=== PATIENT | male | born 1980 | race Two or more races ===

== ENCOUNTER 2019-02-27 09:59 | Inpatient (IN) | payer MEDICAID ==
[~2019-02-27] VITALS: Ht 165.1 cm; Wt 68.5 kg
[2019-02-27] MEDS ORDERED: MULTIVITAMINS1 EAC2 ORAL (10:09)
[2019-02-27] MEDS ORDERED: CREON DR 24,001 EACH PO (10:09)
[2019-02-27] MEDS ORDERED: OMEPRAZOLE20 M2 ORAL (10:09)
[2019-02-27] MEDS ORDERED: ACETAMINOPHEN325 M1 ORAL (10:09)
[2019-02-27] MEDS ORDERED: SENNA8.6 M2 PO (10:12)
[2019-02-27] MEDS ORDERED: VITAMIN B-12500 MC3 SL (10:12)
[2019-02-27] MEDS ORDERED: ZOFRAN4 M1 ORAL (10:12)
[2019-02-27 10:20] VITALS: BP 118/71
--- NOTE | 2019-02-27 10:20 | NUR ---
ED Nurse Note: brought in to ER from SNF by ambulance for abdominal pain 04/30. aao x4 and ambulatory but weak at this moment. skin clean and intact. calm and cooperative but gramicing for pain. pt reported that he vomited x1 this morning at the SNF not EMS did not witness and not since he arrived. pt still c/o nausea.
--- NOTE | 2019-02-27 10:20 | Emergency Room Report ---
History of Present Illness General Chief Complaint: Abdominal Pain Source: Patient, EMS Present Illness HPI Presents via EMS for abdominal pain and vomiting this been present for 3 days. He denies drinking alcohol. He states he is never had this pain before. He is unable to keep down any fluids. He denies hematemesis coffee grounds or melena. It is severe and constant mid abdomen radiating towards his back. He rates the pain 10/10. He did drink alcohol but has been sober for 5 months. In the past he had mild pains in his stomach related to drinking but nothing this severe. He is never been evaluated for this pain. No fevers, chills, sore throat, chest pain, palpitations, dysuria, shortness of breath, joint pain, rashes, depression, anxiety, visual changes, headache. Allergies: Coded Allergies: PENICILLINS (Verified Allergy, Unknown, 02/27/19) Patient History Past Medical History: see triage record Social History: Reports: smoking, alcohol use - None for 5 months but prior use ; Denies: drug use Social History Narrative In a fpc - born in [facility] Reviewed Nursing Documentation: PMH: Agreed; PSxH: Agreed Nursing Documentation-PMH Hx Cancer: Yes - PANCREAS Hx Gastrointestinal Problems: Yes - GI BLEED, CHRONIC ABD PAIN Review of Systems All Other Systems: negative except mentioned in HPI Physical Exam Vital Signs Date Time Temp Pulse Resp B/P (MAP) Pulse Ox O2 Delivery O2 Flow Rate FiO2 02/27/19 09:58 98.8 78 19 118/71 (87) 100 Room Air Sp02 EP Interpretation: reviewed, normal General Appearance: no apparent distress, GCS 15, mild distress Head: normocephalic, atraumatic Eyes: bilateral eye normal inspection, bilateral eye PERRL ENT: moist mucus membranes Neck: supple Respiratory: lungs clear, normal breath sounds Cardiovascular #1: regular rate, rhythm Cardiovascular #2: 2+ radial (R) Gastrointestinal: normal inspection, no mass, non-distended, no rebound, guarding - Minimal, tenderness, decreased bowel sounds Genitourinary: no CVA tenderness Musculoskeletal: back normal, normal range of motion Neurologic: alert, oriented x3, grossly normal Psychiatric: anxious - In pain Skin: no rash Medical Decision Making Diagnostic Impression: Primary Impression: Acute pancreatitis Qualified Codes: K85.20 - Alcohol induced acute pancreatitis without necrosis or infection ER Course Patient presents with epigastric pain and persistent vomiting for 3 days. Differential includes gastritis, gastroenteritis, pancreatitis, gallbladder disease, electrolyte imbalance amongst others. The patient will be evaluated with EKG, chest x-ray CT the abdomen pelvis and labs. Initially patient will be treated with Pepcid, Reglan and Benadryl. EKG without injury. Chest x-ray clear. Labs with elevated white count, normal calcium elevated lipase. Glucose minimally elevated. Patient is more calm after Reglan and Benadryl however states that the pain is still significant and severe. IV hydration continuing. Morphine administered. CT abdomen pancreatitis. Patient still nauseated although not actively vomiting. Also still complains about abdominal pain. He alleges that he has not been drinking alcohol recently. Based on CT results consideration of alcohol related pancreatitis initially that has recurred at this time. Suggestion of either necrosis or pseudocyst. Admit medical floor Dr. Franklin. Laboratory Tests Test 02/27/19 10:24 02/27/19 11:00 White Blood Count 11.6 K/UL (4.8-10.8) H Red Blood Count 5.31 M/UL (4.70-6.10) Hemoglobin 10.3 G/DL (14.2-18.0) L Hematocrit 34.8 % (42.0-52.0) L Mean Corpuscular Volume 66 FL (80-99) L Mean Corpuscular Hemoglobin 19.4 PG (27.0-31.0) L Mean Corpuscular Hemoglobin Concent 29.7 G/DL (32.0-36.0) L Red Cell Distribution Width 17.4 % (11.6-14.8) H Platelet Count 449 K/UL (150-450) Mean Platelet Volume 5.0 FL (6.5-10.1) L Neutrophils (%) (Auto) 81.3 % (45.0-75.0) H Lymphocytes (%) (Auto) 9.5 % (20.0-45.0) L Monocytes (%) (Auto) 7.8 % (1.0-10.0) Eosinophils (%) (Auto) 0.8 % (0.0-3.0) Basophils (%) (Auto) 0.6 % (0.0-2.0) Prothrombin Time 10.2 SEC (9.30-11.50) Prothrombin Time INR 1.0 (0.9-1.1) PTT 26 SEC (23-33) Sodium Level 135 MMOL/L (136-145) L Potassium Level 3.9 MMOL/L (3.5-5.1) Chloride Level 101 MMOL/L (98-107) Carbon Dioxide Level 25 MMOL/L (21-32) Anion Gap 9 mmol/L (5-15) Blood Urea Nitrogen 10 mg/dL (7-18) Creatinine 0.9 MG/DL (0.55-1.30) Estimate Glomerular Filtration Rate > 60 mL/min (>60) Glucose Level 118 MG/DL (74-106) H Calcium Level 9.4 MG/DL (8.5-10.1) Total Bilirubin 0.7 MG/DL (0.2-1.0) Aspartate Amino Transferase (AST) 17 U/L (15-37) Alanine Aminotransferase (ALT) 24 U/L (12-78) Alkaline Phosphatase 93 U/L (46-116) Total Creatine Kinase 150 U/L (26-308) Troponin I 0.000 ng/mL (0.000-0.056) Total Protein 8.1 G/DL (6.4-8.2) Albumin 3.6 G/DL (3.4-5.0) Globulin 4.5 g/dL Albumin/Globulin Ratio 0.8 (1.0-2.7) L Lipase 775 U/L (73-393) H Serum Alcohol < 3 mg/dL Urine Color Yellow Urine Appearance Clear Urine pH 7 (4.5-8.0) Urine Specific [place] 1.010 (1.005-1.035) Urine Protein 1+ (NEGATIVE) H Urine Glucose (UA) Negative (NEGATIVE) Urine Ketones 3+ (NEGATIVE) H Urine Blood 1+ (NEGATIVE) H Urine Nitrite Negative (NEGATIVE) Urine Bilirubin Negative (NEGATIVE) Urine Urobilinogen Normal MG/DL (0.0-1.0) Urine Leukocyte Esterase Negative (NEGATIVE) Urine RBC 0-2 /HPF (0 - 0) H Urine WBC 0 /HPF (0 - 0) Urine Squamous Epithelial Cells Occasional /LPF Urine Bacteria None /HPF (NONE) Urine Opiates Screen Negative (NEGATIVE) Urine Barbiturates Screen Negative (NEGATIVE) Phencyclidine (PCP) Screen Negative (NEGATIVE) Urine Amphetamines Screen Negative (NEGATIVE) Urine Benzodiazepines Screen Negative (NEGATIVE) Urine Cocaine Screen Negative (NEGATIVE) Urine Marijuana (THC) Screen Negative (NEGATIVE) EKG Diagnostic Results Rate: normal Rhythm: NSR ST Segments: no acute changes Rhythm Strip Diag. Results EP Interpretation: yes Rhythm: NSR, no PVC's, no ectopy CT/MRI/US Diagnostic Results CT/MRI/US Diagnostic Results : Imaging Test Ordered: CT abdomen pelvis Impression Acute pancreatitis Findings compatible with pancreatitis with inflammatory stranding centered around the engorged pancreatic head. Replacement of the normal enhancing parenchyma of the body and tail of the pancreas with peripheral enhancing fluid attenuation structures which may be related to pseudocysts or sequela of walled off pancreatic necrosis. Thickening of the wall of the stomach and duodenum, possibly secondary to adjacent pancreatic inflammation. Consider correlation with endoscopy. No CT evident gallstones or biliary ductal dilatation. Subcentimeter likely cysts in the liver. 3 x 1.5 cm stone in the bladder. Bladder wall thickening suggesting cystitis. Correlate with urinalysis. No free intraperitoneal air or evidence of small bowel obstruction. Last 24 Hour Vital Signs Date Time Temp Pulse Resp B/P (MAP) Pulse Ox O2 Delivery O2 Flow Rate FiO2 02/28/19 04:00 97.7 77 16 108/74 (85) 100 02/27/19 23:58 97.9 72 16 110/67 (81) 98 02/27/19 21:00 Room Air 02/27/19 20:00 99.1 76 18 118/72 (87) 100 02/27/19 19:03 98.2 02/27/19 16:02 Room Air 02/27/19 15:28 98.2 89 19 126/84 100 Room Air 02/27/19 13:07 98.8 02/27/19 10:20 78 19 Room Air 02/27/19 10:20 98.8 86 19 118/71 100 Room Air 02/27/19 09:58 98.8 78 19 118/71 (87) 100 Room Air Status: improved Disposition: ADMITTED INPATIENT Condition: Serious Luc Landon MD Feb 27, 2019 10:20
[2019-02-27] MEDS ORDERED: Metoclopramide 10mg/2ml Inj IVP ONE (10:30)
[2019-02-27] MEDS ORDERED: Isovue-300 100ml vial INJ PRN (10:30)
[2019-02-27] MEDS ORDERED: DiphenhydrAMINE 50mg/ml Inj IVP ONE (10:30)
--- NOTE | 2019-02-27 10:40 | NUR ---
ED Nurse Note: x-ray at bedside. pt drank PO contrast. x-ray tech made aware.
[2019-02-27 10:45] LABS: BASOPHILS % (AUTO) 0.6 % (0.0-2.0); EOSINOPHILS % (AUTO) 0.8 % (0.0-3.0); HEMATOCRIT 34.8 % (42.0-52.0); HEMOGLOBIN 10.3 G/DL (14.2-18.0); LYMPHOCYTES % (AUTO) 9.5 % (20.0-45.0); MEAN CORPUSCULAR VOLUME 66 FL (80-99); MONOCYTES % (AUTO) 7.8 % (1.0-10.0); NEUTROPHILS % (AUTO) 81.3 % (45.0-75.0); PLATELET COUNT 449 K/UL (150-450); RED BLOOD COUNT 5.31 M/UL (4.70-6.10); RED CELL DISTRIBUTION WIDTH 17.4 % (11.6-14.8); WHITE BLOOD COUNT 11.6 K/UL (4.8-10.8)
--- NOTE | 2019-02-27 10:48 | Diagnostic Imaging Report ---
Indication: Chest pain Technique: XRAY Chest 1v Comparison: None Findings: Heart size and mediastinal contours are within normal limits for AP technique. There is no focal airspace consolidation, pneumothorax or pleural effusion. Osseous structures demonstrate no acute abnormality. Imaged upper abdominal structures is grossly unremarkable. No evidence of free intraperitoneal air or air under the diaphragms. Impression: No radiographic evidence of acute cardiopulmonary disease.
[2019-02-27 10:58] LABS: ANION GAP 9 mmol/L (5-15); BLOOD UREA NITROGEN 10 mg/dL (7-18); CALCIUM 9.4 MG/DL (8.5-10.1); CARBON DIOXIDE 25 MMOL/L (21-32); CHLORIDE 101 MMOL/L (98-107); CREATININE 0.9 MG/DL (0.55-1.30); POTASSIUM 3.9 MMOL/L (3.5-5.1); SODIUM 135 MMOL/L (136-145)
[2019-02-27 11:03] LABS: ALANINE AMINOTRANSFERASE 24 U/L (12-78); ALBUMIN 3.6 G/DL (3.4-5.0); ALBUMIN/GLOBULIN RATIO 0.8 (1.0-2.7); ALKALINE PHOSPHATASE 93 U/L (46-116); ASPARTATE AMINO TRANSFERASE 17 U/L (15-37); BILIRUBIN,TOTAL 0.7 MG/DL (0.2-1.0); CREATINE KINASE 150 U/L (26-308)
[2019-02-27 11:26] LABS: APPEARANCE,URINE CLEAR; BILIRUBIN, URINE NEGATIVE (NEGATIVE); GLUCOSE, URINE (UA) NEGATIVE (NEGATIVE); KETONES,URINE 3+ (NEGATIVE); LEUKOCYTE ESTERASE ,URINE NEGATIVE (NEGATIVE); NITRITE,URINE NEGATIVE (NEGATIVE); PH,URINE 7 (4.5-8.0); PROTEIN,URINE 1+ (NEGATIVE); UROBILINOGEN,URINE NORMAL MG/DL (0.0-1.0)
[2019-02-27 11:28] LABS: COLOR,URINE YELLOW
[2019-02-27] MEDS ORDERED: Morphine Sulfate 4mg/ml Inj (IV USE ONLY) IVP ONE (12:15)
--- NOTE | 2019-02-27 12:19 | NUR ---
ED Nurse Note: PT. WENT DOWN TO RADIOLOGY
--- NOTE | 2019-02-27 12:34 | NUR ---
ED Nurse Note: PT CAME BACK FROM IMAGING
--- NOTE | 2019-02-27 13:19 | Diagnostic Imaging Report ---
Indication: Abdominal pain Technique: CT of the abdomen and pelvis utilizing automated exposure control with intravenous contrast. Venous scanning performed. Axial, sagittal and coronal reformats presented. CT dose: Total DLP 625.51 mGycm; CTDI vol 12.54 mGy Comparison: None Findings: Imaged lung bases are clear. Heart size within normal limits. No pericardial effusion. There are 4 subcentimeter well-circumscribed low-attenuation lesions within the liver which are too small to definitively characterize but may represent cysts. Hepatic contour is smooth. Hepatic veins and portal veins are patent. Gallbladder is unremarkable, without CT evident gallstones or pericholecystic inflammatory changes. No biliary ductal dilatation. Spleen, adrenal glands unremarkable. The pancreas is engorged and there are peripancreatic inflammatory changes. The body and tail the pancreas are replaced by fluid attenuation structures suggesting areas of walled off pancreatic necrosis versus pseudocysts. The adjacent splenic vein and superior mesenteric vein are patent. Portal vein is patent. Kidneys are symmetric in size and enhance symmetrically. There is no urinary tract stone or hydronephrosis. No perinephric stranding. There is a large stone in the bladder measuring approximately 3 x 1.5 cm. There is bladder wall thickening suggesting cystitis. There is no free intraperitoneal air or fluid. Bowel wall thickening of the stomach and duodenum adjacent to areas of pancreatic inflammation. There is no evidence of small bowel obstruction. No evidence of colonic distention. Multiple prominent mesenteric lymph nodes are noted which are thought to be reactive in etiology. Abdominal aorta is normal in caliber. There is a age indeterminate but likely chronic mild superior endplate compression deformity of the T12 vertebral body. No acute osseous abnormality. IMPRESSION: Findings compatible with pancreatitis with inflammatory stranding centered around the engorged pancreatic head. Replacement of the normal enhancing parenchyma of the body and tail of the pancreas with peripheral enhancing fluid attenuation structures which may be related to pseudocysts or sequela of walled off pancreatic necrosis. Thickening of the wall of the stomach and duodenum, possibly secondary to adjacent pancreatic inflammation. Consider correlation with endoscopy. No CT evident gallstones or biliary ductal dilatation. Subcentimeter likely cysts in the liver. 3 x 1.5 cm stone in the bladder. Bladder wall thickening suggesting cystitis. Correlate with urinalysis. No free intraperitoneal air or evidence of small bowel obstruction. The CT scanner at [facility] is accredited by the [employer] and the scans are performed using protocols designed to limit radiation exposure to as low as reasonably achievable to attain images of sufficient resolution adequate for diagnostic evaluation.
--- NOTE | 2019-02-27 14:58 | NUR ---
ED Nurse Note: Report given to SAMMIE Flores. room is being cleaned and it will be ready at 1530.
--- NOTE | 2019-02-27 15:29 | NUR ---
ED Nurse Note: pt left unit with 1 automated access systems technician in stable condition.
--- NOTE | 2019-02-27 16:00 | NUR ---
NURSE NOTES: Received patient to the floor at 1530. transported via gurney accompanied by one weatherization field technician. Patient ambulated when transferred to bed, noted with weak but steady gait. Patient VSS. C/O abdominal pain 02/28. LAY UPS ASSEMBLER on the floor during admission and seen patient. IV access patent and intact. patient is AAOX4 lithuanian speaking but can speak and understand some German. Patient oriented to room. safety precautions activated. call cancino within patients reach. call out to Dr. Franklin awaiting call back for orders. will follow.
--- NOTE | 2019-02-27 16:35 | GI Initial Consult Note ---
History of Present Illness General Date patient seen: Feb 27, 2019 Time patient seen: 16:29 Reason for Hospitalization: Abdominal Pain Referring physician: DEN TONEY Reason for Consultation: PANCREATITIS Present Illness HPI Presents via EMS for abdominal pain and vomiting this been present for 3 days. He denies drinking alcohol. He states he is never had this pain before. He is unable to keep down any fluids. He denies hematemesis coffee grounds or melena. It is severe and constant mid abdomen radiating towards his back. He does drink alcohol but has been sober for 5 months. In the past he had mild pains in his stomach related to drinking but nothing this severe. GI consulted for pancreatitis. Patient seen, awake alert and oriented x4 Chinese-speaking only. No active signs or symptoms of nausea vomiting. Patient denies any constipation or diarrhea. The patient has complaint of generalized abdominal pain, p.o. intolerance. Patient says he has a history of EtOH use, most recently stated he had 5 beers prior to his pancreatic attack. Abdominal pelvis CT was performed compatible with pancreatitis with inflammatory stranding centered around the engorged pancreatic head. Thickening of the wall and stomach and duodenum. No evidence of cholelithiasis or biliary ductal dilation. Patient has no history of endoscopic or colonoscopy. Labs reviewed; hemoglobin 10.3, lipase level of 775. Home Meds Reported Medications Ondansetron (Zofran) 4 Mg Tablet, 4 MG ORAL Q6H PRN for Nausea & Vomiting, TAB 02/27/19 Cyanocobalamin (Vitamin B-12) (Vitamin B-12) 500 Mcg Tab.subl, 1000 MCG SL, TAB 02/27/19 Sennosides (SENNA) 8.6 Mg Tablet, 8.6 MG PO, TAB 02/27/19 Omeprazole (OMEPRAZOLE) 20 Mg Capsule., 20 MG ORAL DAILY, CAP 02/27/19 Multivitamins* (MULTIVITAMINS*) 1 Each Tablet, 1 TAB ORAL DAILY, TAB 0 Refills 02/27/19 Lipase/Protease/Amylase (CAROLINE KNIGHT 24,000 UNITS CAPSULE) 1 Each Capsule., 1 EACH PO, CAP 02/27/19 Acetaminophen* (ACETAMINOPHEN 325MG TABLET*) 325 Mg Tablet, 325 MG ORAL Q4H PRN for For Pain, TAB 02/27/19 Med list reviewed/reconciled: Yes Allergies: Coded Allergies: PENICILLINS (Verified Allergy, Unknown, 02/27/19) Patient History History Provided By: Patient, Medical Record PMH Narrative Past Medical History: see triage record Social History: Reports: smoking, alcohol use - None for 5 months but prior use ; Denies: drug use Social History Narrative In a assisted - born in [facility] Reviewed Nursing Documentation: PMH: Agreed; PSxH: Agreed Nursing Documentation-PMH Hx Cancer: Yes - PANCREAS Hx Gastrointestinal Problems: Yes - GI BLEED, CHRONIC ABD PAIN Social History: Reports: smoking, alcohol use Review of Systems All Other Systems: negative except mentioned in HPI Physical Exam Vital Signs Date Time Temp Pulse Resp B/P (MAP) Pulse Ox O2 Delivery O2 Flow Rate FiO2 02/27/19 09:58 98.8 78 19 118/71 (87) 100 Room Air Sp02 EP Interpretation: reviewed, normal Labs Laboratory Tests Test 02/27/19 10:24 02/27/19 11:00 White Blood Count 11.6 K/UL (4.8-10.8) H Red Blood Count 5.31 M/UL (4.70-6.10) Hemoglobin 10.3 G/DL (14.2-18.0) L Hematocrit 34.8 % (42.0-52.0) L Mean Corpuscular Volume 66 FL (80-99) L Mean Corpuscular Hemoglobin 19.4 PG (27.0-31.0) L Mean Corpuscular Hemoglobin Concent 29.7 G/DL (32.0-36.0) L Red Cell Distribution Width 17.4 % (11.6-14.8) H Platelet Count 449 K/UL (150-450) Mean Platelet Volume 5.0 FL (6.5-10.1) L Neutrophils (%) (Auto) 81.3 % (45.0-75.0) H Lymphocytes (%) (Auto) 9.5 % (20.0-45.0) L Monocytes (%) (Auto) 7.8 % (1.0-10.0) Eosinophils (%) (Auto) 0.8 % (0.0-3.0) Basophils (%) (Auto) 0.6 % (0.0-2.0) Prothrombin Time 10.2 SEC (9.30-11.50) Prothromb Time International Ratio 1.0 (0.9-1.1) Activated Partial Thromboplast Time 26 SEC (23-33) Sodium Level 135 MMOL/L (136-145) L Potassium Level 3.9 MMOL/L (3.5-5.1) Chloride Level 101 MMOL/L (98-107) Carbon Dioxide Level 25 MMOL/L (21-32) Anion Gap 9 mmol/L (5-15) Blood Urea Nitrogen 10 mg/dL (7-18) Creatinine 0.9 MG/DL (0.55-1.30) Estimat Glomerular Filtration Rate > 60 mL/min (>60) Glucose Level 118 MG/DL (74-106) H Calcium Level 9.4 MG/DL (8.5-10.1) Total Bilirubin 0.7 MG/DL (0.2-1.0) Aspartate Amino Transf (AST/SGOT) 17 U/L (15-37) Alanine Aminotransferase (ALT/SGPT) 24 U/L (12-78) Alkaline Phosphatase 93 U/L (46-116) Total Creatine Kinase 150 U/L (26-308) Troponin I 0.000 ng/mL (0.000-0.056) Total Protein 8.1 G/DL (6.4-8.2) Albumin 3.6 G/DL (3.4-5.0) Globulin 4.5 g/dL Albumin/Globulin Ratio 0.8 (1.0-2.7) L Lipase 775 U/L (73-393) H Serum Alcohol < 3 mg/dL Urine Color Yellow Urine Appearance Clear Urine pH 7 (4.5-8.0) Urine Specific [place] 1.010 (1.005-1.035) Urine Protein 1+ (NEGATIVE) H Urine Glucose (UA) Negative (NEGATIVE) Urine Ketones 3+ (NEGATIVE) H Urine Blood 1+ (NEGATIVE) H Urine Nitrite Negative (NEGATIVE) Urine Bilirubin Negative (NEGATIVE) Urine Urobilinogen Normal MG/DL (0.0-1.0) Urine Leukocyte Esterase Negative (NEGATIVE) Urine RBC 0-2 /HPF (0 - 0) H Urine WBC 0 /HPF (0 - 0) Urine Squamous Epithelial Cells Occasional /LPF Urine Bacteria None /HPF (NONE) Urine Opiates Screen Negative (NEGATIVE) Urine Barbiturates Screen Negative (NEGATIVE) Phencyclidine (PCP) Screen Negative (NEGATIVE) Urine Amphetamines Screen Negative (NEGATIVE) Urine Benzodiazepines Screen Negative (NEGATIVE) Urine Cocaine Screen Negative (NEGATIVE) Urine Marijuana (THC) Screen Negative (NEGATIVE) General Appearance: well appearing, no apparent distress, alert Head: normocephalic EENT: PERRL/EOMI, normal ENT inspection Neck: supple Respiratory: normal breath sounds, no respiratory distress Cardiovascular: normal rate Gastrointestinal: normal inspection, non tender, soft, normal bowel sounds, non -distended Rectal: deferred Genitourinary: deferred Musculoskeletal: normal inspection, back normal Neurologic: normal inspection, alert, oriented x3, responsive Psychiatric: normal inspection, judgement/insight normal, memory normal Skin: normal inspection, normal color, no rash, warm/dry, palpation normal, well hydrated Lymphatic: normal inspection, no adenopathy Current Medications Current Medications Medications (Trade) Dose Ordered Sig/[place] Route PRN Reason Start Time Stop Time Status Last Admin Dose Admin Iopamidol (Isovue-300 100ml) 100 ml NOW PRN INJ Radiology Procedure 02/27/19 10:30 Sodium Chloride 1,000 ml @ 300 mls/hr Q3H20M IV 02/27/19 10:30 03/29/19 10:29 02/27/19 11:08 GI: Plan Problems: (1) ETOH abuse (2) Acute pancreatitis Plan No plans for GI procedures at this time Medical management for acute pancreatitis Maintain n.p.o. plus IV fluids, advance diet as tolerated Pain management Zofran as needed PPI Trend lipase levels Follow labs Discussed with Dr. Mahmood. Thank you for this patient referral, we will follow. The patient was seen and examined at bedside and all new and available data was reviewed in the patients chart. I agree with the above findings, impression and plan. (Patient seen earlier today. Signature stamp does not reflect patient encounter time.). - MD Marjorie Hernandez Anh-Feliz MOSELEY Feb 27, 2019 16:35
[2019-02-27] MEDS ORDERED: Morphine Sulfate 2mg/ml Inj(IV/IM USE ONLY) IVP PRN (16:45)
[2019-02-27] MEDS ORDERED: D5NS 1,000 ML IV SCH (17:00)
[2019-02-27] MEDS ORDERED: LORazepam 1mg tab ORAL PRN (17:00)
[2019-02-27] MEDS: chlordiazePOXIDE 25mg Cap ORAL SCH ×2 (18:10→23:59)
[2019-02-27] MEDS: Morphine Sulfate 2mg/ml Inj(IV/IM USE ONLY) IVP PRN (18:11)
[2019-02-27] MEDS ORDERED: Folic Acid 1 MG, Magnesium Sulfate 2,000 MG, Multivitamin - 12 Injection 10 ML in Sodiu... IV ONE (18:30)
[2019-02-27] MEDS ORDERED: Thiamine 100mg IVPB (Q24H) IVPB ONE ×2 (18:30)
--- NOTE | 2019-02-27 18:43 | NUR ---
Call received from Dr. Franklin. sy received and carried out. Will follow.
--- NOTE | 2019-02-27 19:50 | NUR ---
HAND-OFF: Report given to Wyatt London Rn. Patient stable at hand off. Plan of care endorse.
[2019-02-27 20:00] VITALS: BP 118/72
--- NOTE | 2019-02-27 20:33 | NUR ---
nurse's notes: received patient awake, alert and oriented; admits to 4/5 abdominal pain. IV site on the RAC showed no evidence of infiltration. call light by the bedside. will continue to monitor and plan of care.
[2019-02-27] MEDS: Heparin 5000 units/ml inj SUBQ SCH (21:31)
[2019-02-27 23:58] VITALS: BP 110/67
[2019-02-28] MEDS: Morphine Sulfate 2mg/ml Inj(IV/IM USE ONLY) IVP PRN ×2 (00:08→10:08)
[2019-02-28] MEDS: D5NS 1,000 ML IV SCH ×3 (03:05→21:18)
[2019-02-28 04:00] VITALS: BP 108/74
[2019-02-28] MEDS: chlordiazePOXIDE 25mg Cap ORAL SCH ×3 (05:18→18:48)
[2019-02-28 06:09] LABS: BASOPHILS % (AUTO) 0.9 % (0.0-2.0); EOSINOPHILS % (AUTO) 4.3 % (0.0-3.0); HEMATOCRIT 30.5 % (42.0-52.0); LYMPHOCYTES % (AUTO) 20.6 % (20.0-45.0); MEAN CORPUSCULAR VOLUME 66 FL (80-99); MONOCYTES % (AUTO) 8.2 % (1.0-10.0); PLATELET COUNT 384 K/UL (150-450); RED BLOOD COUNT 4.62 M/UL (4.70-6.10); RED CELL DISTRIBUTION WIDTH 17.5 % (11.6-14.8)
[2019-02-28 06:50] LABS: ANION GAP 8 mmol/L (5-15); CALCIUM 8.1 MG/DL (8.5-10.1); CARBON DIOXIDE 25 MMOL/L (21-32); CHLORIDE 106 MMOL/L (98-107); CHOLESTEROL 177 MG/DL (< 200); CREATININE 0.8 MG/DL (0.55-1.30); HDL CHOLESTEROL 58 MG/DL (40-60); POTASSIUM 3.5 MMOL/L (3.5-5.1); SODIUM 139 MMOL/L (136-145); TRIGLYCERIDES 131 MG/DL (30-150)
--- NOTE | 2019-02-28 06:54 | NUR ---
nurse's notes: no significant changes noted this shift. pain managed well with ordered medications with good results. slept well most of the night without any other complaints. will continue to monitor.
[2019-02-28 07:37] LABS: BLOOD UREA NITROGEN 6 mg/dL (7-18)
[2019-02-28 08:00] VITALS: BP 116/71
--- NOTE | 2019-02-28 08:23 | NUR ---
NURSE NOTES: pt is awake AOx4, not complaining of pain. Pt bed is locked and in lowest position. Call light is within reach. Will continue to monitor pt. IV is running and patent.
[2019-02-28] MEDS: Heparin 5000 units/ml inj SUBQ SCH ×2 (09:12→21:17)
[2019-02-28 12:00] VITALS: BP 116/73
--- NOTE | 2019-02-28 12:29 | History & Physical ---
History and Physical History & Physicial seen and examined. Dictated -[id number] Mercedez Franklin MD Feb 28, 2019 12:29
--- NOTE | 2019-02-28 12:31 | General Progress Note ---
Assessment/Plan Assessment/Plan: seen and examined A/p: 1- Alcoholic ( [place]) Pancreatitis GI, Sx and ID are consulted Subjective Allergies: Coded Allergies: PENICILLINS (Verified Allergy, Unknown, 02/27/19) Objective Last 24 Hour Vital Signs Date Time Temp Pulse Resp B/P (MAP) Pulse Ox O2 Delivery O2 Flow Rate FiO2 02/28/19 09:00 Room Air 02/28/19 08:00 99.0 83 17 116/71 (86) 99 02/28/19 04:00 97.7 77 16 108/74 (85) 100 02/27/19 23:58 97.9 72 16 110/67 (81) 98 02/27/19 21:00 Room Air 02/27/19 20:00 99.1 76 18 118/72 (87) 100 02/27/19 19:03 98.2 02/27/19 16:02 Room Air 02/27/19 15:28 98.2 89 19 126/84 100 Room Air 02/27/19 13:07 98.8 Intake and Output 02/27/19 02/28/19 18:59 06:59 Intake Total 2000 ml 1235.2 ml Output Total 700 ml Balance 2000 ml 535.2 ml Intake Oral 0 ml 0 ml IV Total 2000 ml 1235.2 ml Output Urine Total 700 ml # Voids 1 Laboratory Tests 02/28/19 05:30: White Blood Count 8.0, Red Blood Count 4.62L, Hemoglobin 9.0L, Hematocrit 30.5L , Mean Corpuscular Volume 66L, Mean Corpuscular Hemoglobin 19.5L, Mean Corpuscular Hemoglobin Concent 29.5L, Red Cell Distribution Width 17.5H, Platelet Count 384, Mean Platelet Volume 4.9L, Neutrophils (%) (Auto) 66.0, Lymphocytes (%) (Auto) 20.6, Monocytes (%) (Auto) 8.2, Eosinophils (%) (Auto) 4.3H, Basophils (%) (Auto) 0.9, Sodium Level 139, Potassium Level 3.5, Chloride Level 106, Carbon Dioxide Level 25, Anion Gap 8, Blood Urea Nitrogen 6L, Creatinine 0.8, Estimat Glomerular Filtration Rate > 60, Glucose Level 97, Calcium Level 8.1L, Triglycerides Level 131, Cholesterol Level 177, LDL Cholesterol 96, HDL Cholesterol 58, Cholesterol/HDL Ratio 3.1L, Amylase Level 74 , Lipase 448H Height (Feet): 5 Height (Inches): 5.00 Weight (Pounds): 151 Mercedez Franklin MD Feb 28, 2019 12:31
--- NOTE | 2019-02-28 14:20 | NUR ---
CHARGE NURSE NOTE: US ABDOMEN - RESULT: 3X1.5 STONE IN THE BLADDER. NOTIFIED.
[2019-02-28 16:00] VITALS: BP 110/75
--- NOTE | 2019-02-28 19:10 | NUR ---
pt had a big BM today after having Milk of Mg. Addendum: 02/28/19 at 1940 by Marry Steen RN note for wrong pt. Pt, is NPO and has not had a BM today
--- NOTE | 2019-02-28 19:35 | NUR ---
NURSE NOTES: Report taken from SAMMIE Tuttle. Patient is awake and in bed, A&Ox4, moldovan speaking. No signs of distress on room air. Minor complaint of abdominal pain 3/10, no nausea. Patient is able to ambulate with assist. Skin c/d/i. IV site c/d/i and patent, running D5NS @ 100mls/hr. Patient currently NPO except ice/meds. Bed in lowest position, call light within reach.
--- NOTE | 2019-02-28 19:40 | NUR ---
HAND-OFF: Report given to Laverne/RN, pt is in stable condition.
[2019-02-28 20:00] VITALS: BP 115/74
--- NOTE | 2019-02-28 22:00 | History and Physical Report ---
DATE OF ADMISSION: 02/27/2019 SOURCE OF INFORMATION: Patient and EMR. HISTORY OF PRESENT ILLNESS: The patient is a 38-year-old male with a history of alcoholism, who presented with worsening abdominal pain for the last 2 days. Initial evaluation in the emergency room shows stable vital signs with increased elevated levels of lipase. The patient is admitted for further evaluation. At the time of evaluation, the patient denies chest pain or shortness of breath. No nausea. No vomitus. No diarrhea. No constipation. SOCIAL HISTORY: Positive for heavy alcohol abuse and frequently uses illicit drugs. FAMILY HISTORY: Reviewed and noncontributory. ALLERGIES: Penicillin. IMAGING: Abdominal and pelvic CT scan dated February 27 shows pancreatitis with the questionable cirrhosis, positive for gallstone. LABORATORY DATA: Labs dated February 27, WBC 11.6, hemoglobin of 10.3, and platelets of 449. Glucose of 118. Lipase of 775. PHYSICAL EXAMINATION: VITAL SIGNS: Blood pressure of 120/80, temperature 98.2, pulse oximetry and respiratory rate 18. HEAD AND NECK: Atraumatic and normocephalic. CHEST: Clear to auscultation. HEART: S1 and S2. Regular rate and rhythm. ABDOMEN: Positive for tenderness on deep palpation. NEUROLOGIC: Awake, alert, and oriented x3. ASSESSMENT AND PLAN: 1. Acute alcoholic pancreatitis. 2. Gallstone with no evidence of acute cholecystitis. 3. Alcoholism. 4. GI and DVT prophylaxis. PLAN OF CARE: I will consult with GI and General Surgeon. We will continue to keep the patient NPO. Continue with the current conservative management. Mercedez Franklin M.D. DR: ERICK JOB#: [id number] CC:
[2019-03-01] VITALS: BP 122/74
[2019-03-01] MEDS: chlordiazePOXIDE 25mg Cap ORAL SCH ×4 (00:31→18:12)
[2019-03-01] MEDS: Morphine Sulfate 2mg/ml Inj(IV/IM USE ONLY) IVP PRN ×3 (00:41→20:56)
[2019-03-01 04:00] VITALS: BP 124/74
--- NOTE | 2019-03-01 07:20 | NUR ---
HAND-OFF: Report given to SAMMIE Zheng and SAMMIE Davila. Patient is awake and in stable condition.
[2019-03-01 07:22] LABS: BASOPHILS % (AUTO) 0.6 % (0.0-2.0); EOSINOPHILS % (AUTO) 5.7 % (0.0-3.0); HEMATOCRIT 29.1 % (42.0-52.0); HEMOGLOBIN 8.7 G/DL (14.2-18.0); LYMPHOCYTES % (AUTO) 24.9 % (20.0-45.0); MEAN CORPUSCULAR VOLUME 66 FL (80-99); MONOCYTES % (AUTO) 4.7 % (1.0-10.0); NEUTROPHILS % (AUTO) 64.1 % (45.0-75.0); PLATELET COUNT 358 K/UL (150-450); RED BLOOD COUNT 4.43 M/UL (4.70-6.10); RED CELL DISTRIBUTION WIDTH 17.3 % (11.6-14.8)
[2019-03-01] MEDS: D5NS 1,000 ML IV SCH ×2 (07:43→18:12)
[2019-03-01 07:50] LABS: AMYLASE 62 U/L (25-115); ANION GAP 7 mmol/L (5-15); BLOOD UREA NITROGEN 5 mg/dL (7-18); CALCIUM 9.1 MG/DL (8.5-10.1); CARBON DIOXIDE 28 MMOL/L (21-32); CHLORIDE 107 MMOL/L (98-107); CREATININE 0.8 MG/DL (0.55-1.30); POTASSIUM 3.7 MMOL/L (3.5-5.1); SODIUM 141 MMOL/L (136-145)
[2019-03-01 08:00] VITALS: BP 115/75
--- NOTE | 2019-03-01 08:00 | NUR ---
NURSE NOTES: Pt awake/alert in bed, breathing easily on room air, denies SOB but c/o 7/10 sharp nonradiating upper quadrant pain and mild nausea, medications given per eMAR. Vital signs stable, IV access left a/c with D5 NS running at 100 ml/hr. Urinal available at bedside. Pt currently NPO except ice chips/Rx. Bed left in low position, side rails up x 2 and call light left near pt's hand.
[2019-03-01] MEDS: Heparin 5000 units/ml inj SUBQ SCH ×2 (08:01→20:56)
[2019-03-01 12:00] VITALS: BP 112/69
[2019-03-01 16:00] VITALS: BP 111/72
--- NOTE | 2019-03-01 19:25 | General Progress Note ---
Assessment/Plan Assessment/Plan: S: I am better O: Denies CP or sob. reported abd pain is much better PHYSICAL EXAMINATION:HEAD AND NECK: Atraumatic and normocephalic. CHEST: Clear to auscultation. HEART: S1 and S2. Regular rate and rhythm. ABDOMEN: Positive for tenderness on deep palpation. NEUROLOGIC: Awake, alert, and oriented x3. ASSESSMENT AND PLAN: 1. Acute alcoholic pancreatitis. 2. Gallstone with no evidence of acute cholecystitis. 3. Alcoholism. 4. GI and DVT prophylaxis. PLAN OF CARE: Notes from GI reviewed Subjective Allergies: Coded Allergies: PENICILLINS (Verified Allergy, Unknown, 02/27/19) Objective Last 24 Hour Vital Signs Date Time Temp Pulse Resp B/P (MAP) Pulse Ox O2 Delivery O2 Flow Rate FiO2 03/01/19 16:00 98.1 65 17 111/72 (85) 99 03/01/19 12:00 97.7 73 17 112/69 (83) 99 03/01/19 09:00 Room Air 03/01/19 08:00 97.5 80 18 115/75 (88) 99 03/01/19 04:00 98.9 78 18 124/74 (91) 98 03/01/19 00:00 98.9 81 18 122/74 (90) 99 02/28/19 21:00 Room Air 02/28/19 20:00 98.2 71 18 115/74 (88) 99 Intake and Output 02/28/19 03/01/19 18:59 06:59 Output Total 2050 ml 725 ml Balance -2050 ml -725 ml Output Urine Total 2050 ml 725 ml Laboratory Tests 03/01/19 04:50: White Blood Count 7.0, Red Blood Count 4.43L, Hemoglobin 8.7L, Hematocrit 29.1L , Mean Corpuscular Volume 66L, Mean Corpuscular Hemoglobin 19.5L, Mean Corpuscular Hemoglobin Concent 29.7L, Red Cell Distribution Width 17.3H, Platelet Count 358, Mean Platelet Volume 4.8L, Neutrophils (%) (Auto) 64.1, Lymphocytes (%) (Auto) 24.9, Monocytes (%) (Auto) 4.7, Eosinophils (%) (Auto) 5.7H, Basophils (%) (Auto) 0.6, Sodium Level 141, Potassium Level 3.7, Chloride Level 107, Carbon Dioxide Level 28, Anion Gap 7, Blood Urea Nitrogen 5L, Creatinine 0.8, Estimat Glomerular Filtration Rate > 60, Glucose Level 115H, Calcium Level 9.1, Amylase Level 62, Lipase 357 Height (Feet): 5 Height (Inches): 5.00 Weight (Pounds): 151 Mercedez Franklin MD Mar 01, 2019 19:25
--- NOTE | 2019-03-01 19:36 | NUR ---
NURSE NOTES: Report taken from Norm RN and Giovanni RN. Patient is asleep and in bed, easily arousable by name, A&Ox4. No signs of distress on room air. Having some moderate complaint of pain, primarily through his abdominal upper quadrants, 10/29. IV site c/d/i and patent running D5NS @ 100mls/hr. Urinal at bedside. Patient currently NPO. Bed in lowest position, call light within reach.
[2019-03-01 20:00] VITALS: BP 134/71
[2019-03-02] VITALS: BP 133/75
[2019-03-02] MEDS: chlordiazePOXIDE 25mg Cap ORAL SCH ×3 (00:12→12:49)
[2019-03-02] MEDS: D5NS 1,000 ML IV SCH ×2 (04:45→14:37)
--- NOTE | 2019-03-02 07:16 | NUR ---
HAND-OFF: Report given to SAMMIE Thornton. Patient is awake and stable.
[2019-03-02 08:00] VITALS: BP 113/66
--- NOTE | 2019-03-02 08:00 | NUR ---
NURSE NOTES: Received report from Dewayne COCHRAN, pt a/a/o x4 seating in bed with no signs of distress or other issues at this time. IV on the right AC gauge#18 running D5SN@100ml/hr. pt is on NPO. however pt stated that is hungry and that she would like to go home. RN will inform MD. call light within reach, bed in lowest position. side rales up x2. I will f/u as needed.
[2019-03-02] MEDS: Heparin 5000 units/ml inj SUBQ SCH (09:19)
--- NOTE | 2019-03-02 10:37 | GI Progress Note ---
Assessment/Plan Problems: (1) ETOH abuse ICD Codes: F10.10 - Alcohol abuse, uncomplicated SNOMED: 95187424 (2) Acute pancreatitis ICD Codes: K85.90 - Acute pancreatitis without necrosis or infection, unspecified SNOMED: 439062536 Qualifiers: Qualified Codes: K85.20 - Alcohol induced acute pancreatitis without necrosis or infection Status: stable, progressing Status Narrative Discussed with Dr. Mahmood. Assessment/Plan No plans for GI procedures at this time Medical management for acute pancreatitis FLD, advance as tolerated Pain management Zofran as needed PPI Trend lipase levels, now normal. Follow labs okay for DC per GI standpoint if patient can tolerate diet The patient was seen and examined at bedside and all new and available data was reviewed in the patients chart. I agree with the above findings, impression and plan. (Patient seen earlier today. Signature stamp does not reflect patient encounter time.). - José Mahmood MD Subjective Gastrointestinal/Abdominal: Reports: no symptoms Objective Last 24 Hour Vital Signs Date Time Temp Pulse Resp B/P (MAP) Pulse Ox O2 Delivery O2 Flow Rate FiO2 03/02/19 00:00 98.4 76 19 133/75 (94) 99 03/01/19 21:00 Room Air 03/01/19 20:00 98.0 72 18 134/71 (92) 100 03/01/19 16:00 98.1 65 17 111/72 (85) 99 03/01/19 12:00 97.7 73 17 112/69 (83) 99 Intake and Output 03/01/19 03/02/19 19:00 07:00 Output Total 700 ml 1100 ml Balance -700 ml -1100 ml Output Urine Total 700 ml 1100 ml # Voids 2 Height (Feet): 5 Height (Inches): 5.00 Weight (Pounds): 151 General Appearance: WD/WN, no apparent distress, alert Cardiovascular: normal rate Respiratory/Chest: normal breath sounds, no respiratory distress Abdominal Exam: normal bowel sounds, non tender, soft Extremities: normal range of motion, non-tender Azucena Amador NP Mar 02, 2019 10:37
--- NOTE | 2019-03-02 11:46 | NUR ---
NURSE NOTES: RN called Dr. Franklin to ask if possible to d/c patient since GI and SX cleared pt to go home. I will f/u as needed.
--- NOTE | 2019-03-02 11:56 | Consultation ---
History of Present Illness General Date patient seen: Mar 02, 2019 Reason for Hospitalization: Abdominal Pain Present Illness HPI 38M presented to ED at [facility] with complaints of abdominal pain and vomiting this been present for 3 days prior to admission. He denies drinking alcohol. He states he is never had this pain before. He is unable to keep down any fluids. He denies hematemesis coffee grounds or melena. It is severe and constant mid abdomen radiating towards his back. He does drink alcohol but has been sober for 5 months. In the past he had mild pains in his stomach related to drinking but nothing this severe. Surgery consulted for abdominal pain and pancreatitis. Patient seen, awake alert and oriented x4 Iranian-speaking only. No active signs or symptoms of nausea vomiting. Patient denies any constipation or diarrhea. The patient has complaint of generalized abdominal pain, p.o. intolerance. Patient says he has a history of EtOH use, most recently stated he had 5 beers prior to his pancreatic attack. Abdominal pelvis CT was performed compatible with pancreatitis with inflammatory stranding centered around the engorged pancreatic head. Thickening of the wall and stomach and duodenum. No evidence of cholelithiasis or biliary ductal dilation. states pain improved since admission Allergies: Coded Allergies: PENICILLINS (Verified Allergy, Unknown, 02/27/19) Medication History Scheduled Multivitamins* (Multivitamins*), 1 TAB ORAL DAILY, (Reported) Omeprazole (Omeprazole), 20 MG ORAL DAILY, (Reported) Scheduled PRN Acetaminophen* (Acetaminophen 325MG Tablet*), 325 MG ORAL Q4H PRN for For Pain, (Reported) Ondansetron (Zofran), 4 MG ORAL Q6H PRN for Nausea & Vomiting, (Reported) Miscellaneous Medications Cyanocobalamin (Vitamin B-12) (Vitamin B-12), 1,000 MCG SL, (Reported) Lipase/Protease/Amylase (Creon Dr 24,000 Units Capsule), 1 EACH PO, (Reported) Sennosides (Senna), 8.6 MG PO, (Reported) Patient History History Provided By: Patient, Medical Record, PMD Healthcare decision maker Resuscitation status Advanced Directive on File Past Medical/Surgical History Past Medical/Surgical History: (1) Acute pancreatitis Review of Systems Review of Symptoms General ROS: no weight loss or fever Psychological ROS: no depression or mood changes, no memory loss Ophthalmic ROS: no visual changes or eye irritation ENT ROS: no nasal congestion, hearing loss, dizziness Allergy and Immunology ROS: no allergic symptoms or urticaria Hematological and Lymphatic ROS: no swollen glands, unusual bleeding or bruising Endocrine ROS: no polyuria, polydipsia, weight changes, temperature intolerance Respiratory ROS: no cough, shortness of breath, or wheezing Cardiovascular ROS: no chest pain or dyspnea on exertion Gastrointestinal ROS: denies abdominal pain, no bright red blood in stool. Musculoskeletal ROS: no myalgias or arthralgias Neurological ROS: no TIA or stroke symptoms Dermatological ROS: no new or changing skin lesions, rashes or pruritis Physical Exam Physical Exam General appearance: alert, cooperative, no distress, appears stated age Head: Normocephalic, without obvious abnormality, atraumatic Eyes: conjunctivae/corneas clear. PERRL, EOM's intact. Fundi benign Throat: Lips, mucosa, and tongue normal. Teeth and gums normal Neck: supple, symmetrical, trachea midline, no adenopathy, thyroid: not enlarged, symmetric, no tenderness/mass/nodules, no carotid bruit and no JVD Lungs: clear to auscultation bilaterally Heart: regular rate and rhythm, S1, S2 normal, no murmur, click, rub or gallop Abdomen: soft, non-tender. Bowel sounds normal. No masses, no organomegaly Extremities: extremities normal, atraumatic, no cyanosis or edema Pulses: 2+ and symmetric Skin: Skin color, texture, turgor normal. No rashes or lesions Neurologic: Grossly normal Last 24 Hour Vital Signs Date Time Temp Pulse Resp B/P (MAP) Pulse Ox O2 Delivery O2 Flow Rate FiO2 03/02/19 00:00 98.4 76 19 133/75 (94) 99 03/01/19 21:00 Room Air 03/01/19 20:00 98.0 72 18 134/71 (92) 100 03/01/19 16:00 98.1 65 17 111/72 (85) 99 03/01/19 12:00 97.7 73 17 112/69 (83) 99 Intake and Output 03/01/19 03/02/19 19:00 07:00 Output Total 700 ml 1100 ml Balance -700 ml -1100 ml Output Urine Total 700 ml 1100 ml # Voids 2 Height (Feet): 5 Height (Inches): 5.00 Weight (Pounds): 151 Medications Current Medications Medications (Trade) Dose Ordered Sig/[place] Route PRN Reason Start Time Stop Time Status Last Admin Dose Admin Acetaminophen (Tylenol) 650 mg Q4H PRN ORAL fever (temp>100.5 F) 02/27/19 16:45 03/29/19 16:44 Acetaminophen (Tylenol) 650 mg Q6H PRN ORAL Mild Pain (Pain Scale 1-3) 02/27/19 17:00 03/29/19 16:59 Chlordiazepoxide (Librium) 25 mg EVERY 6 HOURS ORAL 02/27/19 18:00 03/06/19 17:59 03/02/19 05:32 Dextrose (Dextrose 50%) 25 ml Q30M PRN IV Hypoglycemia 02/27/19 16:45 03/29/19 16:44 Dextrose (Dextrose 50%) 50 ml Q30M PRN IV Hypoglycemia 02/27/19 16:45 03/29/19 16:44 Dextrose/Sodium Chloride 1,000 ml @ 100 mls/hr Q10H IV 02/28/19 02:37 03/30/19 02:36 03/02/19 04:45 Heparin Sodium (Porcine) (Heparin 5000 units/ml) 5,000 units EVERY 12 HOURS SUBQ 02/27/19 21:00 03/29/19 20:59 03/02/19 09:19 Lorazepam (Ativan) 1 mg Q6H PRN ORAL For Anxiety 02/27/19 17:00 03/06/19 16:59 Morphine Sulfate (Morphine Sulfate) 2 mg Q4H PRN IVP For Pain (4-10) 02/27/19 17:00 03/06/19 16:59 03/01/19 20:56 Multivitamins (Multivitamins) 1 tab DAILY ORAL 02/28/19 09:00 03/30/19 08:59 03/02/19 09:19 Ondansetron HCl (Zofran) 4 mg Q6H PRN IVP Nausea & Vomiting 02/27/19 17:00 03/29/19 16:59 03/01/19 07:55 Pantoprazole (Protonix) 40 mg DAILY ORAL 02/28/19 09:00 03/30/19 08:59 03/02/19 09:19 Assessment/Plan Problem List: (1) Acute pancreatitis Assessment & Plan: afebrile, HD stable, exam benign, labs improved no acute surgical intervention planned diet as tolerated d/c planning thank you refrain from etoh ICD Codes: K85.90 - Acute pancreatitis without necrosis or infection, unspecified SNOMED: 968950422 Qualifiers: Qualified Codes: K85.20 - Alcohol induced acute pancreatitis without necrosis or infection Alex Gallegos Mar 02, 2019 11:56
[2019-03-02 12:00] VITALS: BP 113/69
--- NOTE | 2019-03-02 14:21 | Diagnostic Imaging Report ---
Indication: Abdominal pain Technique: Grayscale and duplex Doppler imaging of the abdomen performed. Comparison: None Findings: Tiny liver cysts noted. Doppler interrogation of the main portal vein shows patency with hepatopedal, monophasic flow. There is no biliary ductal dilatation identified. Gallbladder is unremarkable. CBD is 5.4 mm in diameter. There demonstrated part of the pancreas, aorta and IVC show no definite abnormalities although the pancreas is largely obscured by bowel gas. There is a 3.2 cm stone in the urinary bladder. No postvoid residual noted. There is no hydronephrosis. IMPRESSION: Urinary bladder stone measuring 3 cm. Tiny liver cysts. Obscured pancreas
--- NOTE | 2019-03-02 14:35 | NUR ---
NURSE NOTES: Received order to d/c. 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 DC removed prior to d/c. discharge instructions and belongings given to patient. pt left the floor with no signs of distress or other issues at this time. I will f/u as needed.
--- NOTE | 2019-03-02 14:49 | General Progress Note ---
Assessment/Plan Status: stable, progressing Assessment/Plan: S: I am better O: Denies CP or sob. reported abd pain is much better PHYSICAL EXAMINATION:HEAD AND NECK: Atraumatic and normocephalic. CHEST: Clear to auscultation. HEART: S1 and S2. Regular rate and rhythm. ABDOMEN: Positive for tenderness on deep palpation. NEUROLOGIC: Awake, alert, and oriented x3. ASSESSMENT AND PLAN: 1. Acute alcoholic pancreatitis. 2. Gallstone with no evidence of acute cholecystitis. 3. Alcoholism. 4. GI and DVT prophylaxis. PLAN OF CARE: Notes from GI reviewed Ok to followup as o/p, as is cleared with GI Subjective Allergies: Coded Allergies: PENICILLINS (Verified Allergy, Unknown, 02/27/19) Objective Last 24 Hour Vital Signs Date Time Temp Pulse Resp B/P (MAP) Pulse Ox O2 Delivery O2 Flow Rate FiO2 03/02/19 12:00 97.6 74 20 113/69 (84) 98 03/02/19 09:00 Room Air 03/02/19 08:00 98.6 69 21 113/66 (82) 98 03/02/19 00:00 98.4 76 19 133/75 (94) 99 03/01/19 21:00 Room Air 03/01/19 20:00 98.0 72 18 134/71 (92) 100 03/01/19 16:00 98.1 65 17 111/72 (85) 99 Intake and Output 03/01/19 03/02/19 19:00 07:00 Output Total 700 ml 1100 ml Balance -700 ml -1100 ml Output Urine Total 700 ml 1100 ml # Voids 2 Height (Feet): 5 Height (Inches): 5.00 Weight (Pounds): 151 Mercedez Franklin MD Mar 02, 2019 14:49
--- NOTE | 2019-03-02 15:54 | NUR ---
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 Denies diarrhea SI: Pancreatitis VS: BP: 118/71 HR: 86 RR 19 02 Sat 100% (RA) T: 98.8 NT: WBC 11.6 Mean Plt 5.0 CXR: negative CT abdomen: Findings compatible with pancreatitis with inflammatory stranding centered around the engorged pancreatic head. Replacement of the normal enhancing parenchyma of the body and tail of the pancreas with peripheral enhancing fluid attenuation structures which may be related to pseudocysts or sequela of walled off pancreatic necrosis. Thickening of the wall of the stomach and duodenum, possibly secondary to adjacent pancreatic inflammation. 3 x 1.5 cm stone in the bladder. Bladder wall thickening suggesting cystitis. IS: Metoclopramide 10mg inj UR Protein 1+ UR Ketones 3+ UR RBC 0-2 Lipase 775 Famotidine 20mg IV NS 1000ml IV Diphenhydramine 50mg IVP NS 1000ml IV Morphine 4mg IVP Admitted to Med-surg Med-surg status DCP: Pending Hospital Stay
--- NOTE | 2019-03-03 10:08 | Discharge Summary ---
Discharge Summary Discharge Summary _ DATE OF ADMISSION: 02/27/2019 DATE OF DISCHARGE: 03/02/2019 DISCHARGED BY:Dr. Franklin REASON FOR ADMISSION: 38 years old male with past medical history of ETOH abuse, presented with abdominal pain and inability to hold oral diet and fluids. Pain reported to be severe, constant , radiating towards his back , 10 out of 10 on a scale 1-10. He denied hematemesis or melena. He denied black stools. He denied fever or chills. No chest pain , shortness of breath, palpitations. Patient was sober for 5 months. Upon evaluation vital signs were stable. Laboratory work-up revealed mild leukocytosis with WBC 11.6, hemoglobin 10.3 , hematocrit 34.8. Platelet count 449. Stable electrolytes and renal parameters. Lipase 775. Stable LFT. Troponin negative. Albumin 3.6. Urinalysis revealed +1 protein, no evidence of UTI. Urine toxicology screen was negative. EKG revealed normal sinus rhythm , no acute ischemic changes. CT of the abdomen and pelvis demonstrated findings compatible with pancreatitis with inflammatory stranding centered around the engorged pancreatic head. N o CT evidence of gallstones or biliary ductal dilatation. 3 x 1.5 cm stone in the bladder. No free intraperitoneal air or evidence of small bowel obstruction. Patient was subsequently admitted for management of acute pancreatitis. CONSULTANTS: GI specialist Dr. Mahmood surgery Dr. Gallegos [facility] COURSE: Patient admitted to medical surgical floor Patient initially was kept n.p.o. and started on the IV fluids. Pain management was addressed as needed. Antiemetic provided as needed. GI prophylaxis with PPI provided. GI specialist and surgery followed. Lipase trended down to normal Per GI specialist, no plans for GI procedure at this time. GI specialist recommended medical management for acute pancreatitis. General surgeon seen and evaluated patient. Patient remained afebrile, hemodynamically stable, benign physical exam . Lipase trended down to normal. Patient started on liquid diet and was advanced as tolerated. Per surgeon , no acute surgical intervention was planned. Patient was able to tolerate diet. Patient was counseled on abstinence from the ETOH. Patient clinically stabilized and was ready for discharge home. FINAL DIAGNOSES: Acute alcoholic pancreatitis ETOH abuse DISCHARGE MEDICATIONS: See Medication Reconciliation list. DISCHARGE INSTRUCTIONS: Patient was discharged home. Follow up with primary care provider in one week. I have been assigned to dictate discharge summary for this account. I was not involved in the patient's management. Yarelis Mckoy NP Mar 03, 2019 10:08
== END 2019-03-02 15:00 | disposition home or self-care (01) | DRG 282 ==
LOC: EDBD 09:59 → EMR 12:35 → 3E 14:19 → EDBEDREQ 14:28
DX: K85.20 Alcohol induced acute pancreatitis without necrosis or infection (principal); F10.10 Alcohol abuse, uncomplicated; Z88.0 Allergy status to penicillin; K80.20 Calculus of gallbladder without cholecystitis without obstruction
CPT/HCPCS: 36415; 71045; 74177; 76700; 80048; 80053; 80061; 80307; 80329; 81003; 82150; 82550; 83690; 84484; 85025; 85610; 85730; 87081; 93005; 96361; 96374; 96375; 99285; J2405; J2765